=== PATIENT | male | born 1940 | race Caucasian/White ===

== ENCOUNTER → 2020-11-01 | Outpatient (CLI) | payer MEDICARE ==
[2020-11-01 16:37] LABS: Albumin, Blood 3.9 g/dL (3.4-5.0); Albumin/Globulin Ratio 1.3 (0.8-1.8); Bilirubin, Total 0.7 mg/dL (0.1-1.0); Bun/Creatinine Ratio 24.5 (12.0-20.0); Calcium, Blood 8.9 mg/dL (8.5-10.1); Creatinine, Blood 1.96 mg/dL (0.60-1.20); Free Thyroxine 0.95 ng/dL (0.70-1.60); Globulin, Blood 3.1 g/dL (2.2-4.0); Potassium, Blood 4.3 mmol/L (3.5-5.5); Thyroid Stimulating Hormone 1.52 uIU/mL (0.360-4.800)
== END | disposition home or self-care (01) ==
LOC: LAB SHORT 15:08 → PLD 15:08
PROVIDERS: Registered Nurse
DX: E13.3 Other specified diabetes mellitus with ophthalmic complications (principal); E11.65 Type 2 diabetes mellitus with hyperglycemia; E04.1 Nontoxic single thyroid nodule
CPT/HCPCS: 80053; 83036; 84439; 84443